=== PATIENT | female | born 1970 | race Caucasian/White ===

== ENCOUNTER 2023-10-10 10:43 | Emergency (ER) | payer MEDICARE, SELFPAY ==
[2023-10-10 11:00] VITALS: BP 143/81; PULSE 78; RESP 18; TEMP 36.7; O2SAT 100
--- NOTE | 2023-10-10 11:04 | ED.GENADULT ---
HPI - General Adult General Chief complaint: Dizziness Stated complaint: weak/tired Time Seen by Provider: 10/10/23 11:12 Source: patient Mode of arrival: ambulatory Limitations: no limitations History of Present Illness HPI narrative: 52-year-old female presented for complaint of feeling dizzy and weak over the past 2 days. States she does not feel like the room is spinning. She feels like she could sleep for days. States at the onset she went to bed early then slept until 1:00 p.m. the following day. denies chest pain, heart racing, trouble breathing, wheezing, nausea, vomiting, diarrhea, hematochezia or fever. Denies change in medication. Related Data Home Medications Medication Instructions Recorded Confirmed carbamazepine 200 mg tablet mg 10/10/23 diazepam 5 mg tablet mg 10/10/23 duloxetine 60 mg capsule,delayed mg PO 10/10/23 release lamotrigine 200 mg tablet mg 10/10/23 levothyroxine 112 mcg tablet mcg 10/10/23 olanzapine 7.5 mg tablet mg 10/10/23 ondansetron HCl 4 mg tablet mg 10/10/23 pantoprazole 40 mg tablet,delayed mg PO 10/10/23 release terbinafine HCl 250 mg tablet mg 10/10/23 topiramate 200 mg tablet mg 10/10/23 Allergies Allergy/AdvReac Type Severity Reaction Status Date / Time clozapine Allergy Unknown Unverified 04/21/14 14:36 Review of Systems Review of Systems: CONSTITUTIONAL: Reports dizziness/fatigue Denies body aches, fever, chills, or sweats. EYES: Denies visual changes, redness, or discharge. ENT: Denies rhinorrhea, congestion, sore throat, or otalgia. CARDIOVASCULAR: Denies chest pain, palpitations, or edema. RESPIRATORY: Denies cough or dyspnea. GASTROINTESTINAL: Denies abdominal pain, nausea, vomiting, or diarrhea. GENITOURINARY: Denies dysuria or hematuria. SKIN: Denies rash, itching, or wounds. MUSCULOSKELETAL: Denies back pain, joint pain, or myalgia. NEUROLOGIC: Denies headache, numbness, tingling, or weakness. All systems reviewed & are unremarkable except as noted in HPI and below PMFSH Comments At time of signature, I have reviewed and agree with nursing past medical, surgical, social and family history unless otherwise noted. Please see nursing chart for further information. There is no relevant family history pertinent to the presenting complaint Exam Narrative: GENERAL: Well-appearing HEAD: Normocephalic, atraumatic. EYES: EOMI. No redness or drainage. Conjunctivae normal. ENT: Mucous membranes pink and moist. No rhinorrhea. TMs normal bilaterally. Throat normal. Uvula midline. NECK: Normal AROM. Supple. No lymphadenopathy. CHEST: No respiratory distress. Clear to auscultation. HEART: Regular rate and rhythm. No murmur appreciated. Normal peripheral pulses. ABDOMEN: Soft, nontender, nondistended, normal active bowel sounds. EXTREMITIES: Normal range of motion. No edema. SKIN: Warm, dry, no rash. Capillary refill normal. Normal skin turgor. NEURO: No focal deficits. Alert and oriented x3. Gait steady. PSYCH: Normal affect. Course Course Emergency Course: Patient is aware of diagnosis, understands and agrees to treatment plan. Anticipatory guidance given. Patient agrees to follow-up as directed and is aware of reasons to seek care at the emergency department. Portions of this record may have been created with voice recognition software Level of Care: Express Care Visit Vital Signs Vital signs: Vital Signs Temperature 98.1 F 10/10/23 11:00 Pulse Rate 78 10/10/23 11:00 Respiratory Rate 18 10/10/23 11:00 Blood Pressure 143/81 H 10/10/23 11:00 Pulse Oximetry 100 10/10/23 11:00 Oxygen Delivery Room Air 10/10/23 11:00 Temperature 98.1 F 10/10/23 11:00 Pulse Rate 97 10/10/23 11:14 Respiratory Rate 18 10/10/23 11:00 Blood Pressure 128/75 10/10/23 11:14 Pulse Oximetry 100 10/10/23 11:00 Oxygen Delivery Room Air 10/10/23 11:00 Medical Decision Making MDM Narrative Medical deci
[2023-10-10 11:10] VITALS: BP 129/79; PULSE 85
[2023-10-10 11:12] VITALS: BP 120/79; PULSE 89
[2023-10-10 11:14] VITALS: BP 128/75; PULSE 97
== END 2023-10-10 12:20 | disposition short-term general hospital (02) ==
PROVIDERS: Emergency Provider Nurse Practitioner Family; PCP Family Medicine
DX: R53.83 Other fatigue (principal); Z20.822 Contact with and (suspected) exposure to COVID-19; K21.9 Gastro-esophageal reflux disease without esophagitis
CPT/HCPCS: 87426; 87804; 99213; G0463